=== PATIENT | female | born 1985 | race African-American/Black ===

== ENCOUNTER → 2020-09-05 14:03 | Outpatient (BNVA) | payer OTHER, SELFPAY | PROVIDERS: Visit Provider Physician Assistant ==

== ENCOUNTER → 2020-09-25 12:30 | Outpatient (BNVA) | payer OTHER, SELFPAY | PROVIDERS: PCP Internal Medicine; Visit Provider Surgery | DX: E66.01 Morbid (severe) obesity due to excess calories (principal); Z68.44 Body mass index [BMI] 60.0-69.9, adult | CPT/HCPCS: 99202 ==

== ENCOUNTER 2020-09-28 11:37 | Outpatient (REF) | payer OTHER, SELFPAY ==
--- NOTE | ~2020-09-28 | XR_ITS ---
EXAMINATION: XR CHEST CLINICAL INFORMATION: Shortness of breath COMPARISON: None TECHNIQUE: 2 views of the chest were obtained. FINDINGS: No significant abnormality is noted involving the heart, lungs, mediastinum, bony thorax or soft tissues. XR/XR chest 2V IMPRESSION: Unremarkable examination.
--- NOTE | 2020-09-28 11:47 | ECG_ITS ---
Test Reason : SOB Blood Pressure : / mmHG Vent. Rate : 093 BPM Atrial Rate : 093 BPM P-R Int : 110 ms QRS Dur : 082 ms QT Int : 358 ms P-R-T Axes : 025 047 006 degrees QTc Int : 445 ms Sinus rhythm with short OK Otherwise normal ECG No previous ECGs available Referred By: Tali Costello Electronically Signed By:ASHLEY MOJICA MD
[2020-09-28 12:31] LABS: MANUAL DIFF FLAG NO
[2020-09-28 12:42] LABS: Basophils Percent Auto 0.2 % (0-2); Eosinophils Absolute Auto 0.3 X10*3/uL (0.0-0.4); Eosinophils Percent Auto 2.8 % (0-4); Hematocrit 38.3 % (37-47); Hemoglobin 11.5 g/dl (12.0-16.0); Imm Gran Abs Auto 0.03 X10*3/uL (0.00-0.03); Imm Gran Pct Auto 0.3 % (0.0-0.4); Lymphocytes Absolute Auto 2.8 X10*3/uL (1.2-4.9); Lymphocytes Percent Auto 26.6 % (20-40); Mean Corpuscular Hemoglobin 22.8 pg (27.0-33.0); Mean Corpuscular Volume 75.8 fL (80-98); Mean Platelet Volume 10.8 fL (9.4-12.3); Monocytes Absolute Auto 0.8 X10*3/uL (0.1-1.2); Monocytes Percent Auto 7.1 % (2-11); Neutrophils Absolute Auto 6.7 X10*3/uL (2.0-8.3); Platelet Count 401 X10*3/uL (160-400); Red Blood Count 5.05 X10*6/uL (4.20-5.50); White Blood Count 10.6 X10*3/uL (4.8-10.8)
[2020-09-28 13:04] LABS: Estimated Average Glucose 134 mg/dL; Hemoglobin A1c % 6.3 %
[2020-09-28 13:09] LABS: Alanine Aminotransferase 36 U/L (0-31); Albumin Level 3.9 g/dL (3.5-5.0); Alkaline Phosphatase 69 U/L (39-117); Anion Gap 12 (12-20); Aspartate Amino Transferase 28 U/L (5-31); Bilirubin Total 0.6 mg/dL (0.0-1.0); Blood Urea Nitrogen 15 mg/dL (9-16); C Reactive Protein 2.56 mg/dL (< or = 0.50); Calcium 9.4 mg/dL (8.4-10.2); Carbon Dioxide 25 mmol/L (22-29); Chloride 105 mmol/L (96-108); Cholesterol 140 mg/dL; Estimated Glomerular Filt Rate > 60; Glucose Fasting 128 mg/dL (60-99); HDL Cholesterol 34 mg/dL; Iron 35 mcg/dL (30-160); LDL Cholesterol Calculated 84 mg/dl; Percent Iron Saturation 7 % (15-50); Potassium 4.3 mmol/L (3.3-5.1); Sodium 138 mmol/L (135-145); Total Iron Binding Capacity 497 mcg/dL (228-428); Total Protein 7.6 g/dL (6.5-8.0); Triglycerides 112 mg/dL; Unsaturated Iron Binding 462 ug/dL
[2020-09-28 13:27] LABS: Vitamin B12 318 pg/mL (200-900)
[2020-09-28 13:29] LABS: Vitamin D 25-OH Total 4.9 ng/mL (>30)
[2020-10-01 16:51] LABS: Zinc 65 mcg/dL (60-130)
[2020-10-02 10:27] LABS: Calcium (PTHI) 9.3 mg/dL (8.6-10.2); PTHI 48 pg/mL (14-64)
[2020-10-03 00:36] LABS: Vitamin A 36 mcg/dL (38-98)
[2020-10-03 15:56] LABS: Vitamin B1 6 nmol/L (8-30)
== END 2020-09-28 11:38 | disposition home or self-care (01) ==
LOC: HO.LAB 11:37
PROVIDERS: Visit Provider Surgery
DX: Z01.818 Encounter for other preprocedural examination (principal); K91.2 Postsurgical malabsorption, not elsewhere classified; R06.02 Shortness of breath; E55.9 Vitamin D deficiency, unspecified; Z90.3 Acquired absence of stomach [part of]
CPT/HCPCS: 36415; 71046; 80053; 80061; 82306; 82607; 83036; 83540; 83970; 84425; 84443; 84590; 84630; 85025; 86140; 93005

== ENCOUNTER 2020-10-11 14:34 | Outpatient (REF) | payer OTHER, SELFPAY ==
[2020-10-12 13:41] LABS: H Pylori Breath Test NOT DETECTED (NOT DETECTED)
== END 2020-10-11 14:35 | disposition home or self-care (01) ==
LOC: HO.LNP 14:34
PROVIDERS: Surgery; Visit Provider Physician Assistant
DX: Z01.818 Encounter for other preprocedural examination (principal)
CPT/HCPCS: 83013; 99211

== ENCOUNTER → 2020-10-17 14:02 | Outpatient (BNVA) | payer OTHER, SELFPAY | PROVIDERS: Visit Provider Physician Assistant | DX: E66.01 Morbid (severe) obesity due to excess calories (principal); Z68.44 Body mass index [BMI] 60.0-69.9, adult | CPT/HCPCS: 99212 ==

== ENCOUNTER → 2020-10-29 13:42 | Outpatient (BNVA) | payer OTHER, SELFPAY | PROVIDERS: Visit Provider Dietitian, Registered | DX: E66.9 Obesity, unspecified (principal); Z68.44 Body mass index [BMI] 60.0-69.9, adult | CPT/HCPCS: 97802 ==

== ENCOUNTER → 2020-11-26 08:16 | Outpatient (BNVA) | payer OTHER, SELFPAY | PROVIDERS: Visit Provider Dietitian, Registered | DX: E66.9 Obesity, unspecified (principal); Z68.44 Body mass index [BMI] 60.0-69.9, adult | CPT/HCPCS: 97803 ==

== ENCOUNTER → 2020-12-20 08:16 | Outpatient (BNVA) | payer OTHER, SELFPAY | PROVIDERS: Visit Provider Dietitian, Registered | DX: E66.01 Morbid (severe) obesity due to excess calories (principal) | CPT/HCPCS: 97803 ==

== ENCOUNTER 2021-10-13 13:58 | Emergency (ER) | payer OTHER, SELFPAY ==
--- NOTE | ~2021-10-13 | XR_ITS ---
EXAMINATION: XR CHEST CLINICAL INFORMATION: Cough, upper respiratory infection. COMPARISON: 09/28/2020 chest radiographs. TECHNIQUE: 2 views of the chest were obtained. FINDINGS: Subtle mild patchy opacities are seen bilaterally most pronounced in the left midlung in the perihilar region. There are no pleural effusions. The heart and mediastinal structures are unremarkable. XR/XR chest 2V IMPRESSION: Subtle mild bilateral patchy opacities with more focal left perihilar infiltrate suggesting an infectious/inflammatory process.
[2021-10-13 14:38] VITALS: BP 150/96; PULSE 91; RESP 20; TEMP 36.6; O2SAT 96; BMI 67.3
[2021-10-13 15:40] LABS: Influenza A PCR NEGATIVE (Negative); Influenza B PCR NEGATIVE (Negative); Resp Syncy Virus RNA Qual PCR NEGATIVE (Negative); SARS COV2 PCR INHOUSE NEGATIVE (Negative)
[2021-10-13] MEDS: predniSONE 20 MG TABLET 40 MG PO (17:57)
[2021-10-13] MEDS: Amoxicillin/Potassium Clav 875 MG TABLET PO (17:57)
[2021-10-13] MEDS: Benzonatate 100 MG CAPSULE 200 MG PO (17:57)
[2021-10-13 17:59] VITALS: PULSE 91; RESP 18; O2SAT 96
[2021-10-13] MEDS: Albuterol Sulfate 90 MCG 8 GM INHALER 4 PUFF INHALE (17:59)
--- NOTE | 2021-10-13 18:05 | ED.URI ---
HPI - URI/Sore Throat General Chief Complaint: Upper Respiratory Symptoms Stated Complaint: SOB/Headaches/Nose bleeds Time Seen by Provider: 10/13/21 17:27 Source: patient Mode of arrival: ambulatory Limitations: no limitations History of Present Illness HPI Narrative: Patient been complaining of headache body ache cough symptoms for last 4 days with epistaxis off and on. With other family member also sick including children. Patient denies any fever cough is with mucopurulent expectoration feel congested with body aches patient does have a history of asthma occasionally uses inhaler complaining of wheezing most in the nighttime epistaxis is mostly on the left nare self-limited Related Data Home Medications Medication Instructions Recorded Confirmed albuterol sulfate 90 mcg/actuation 2 puff INHALATION Q4-6H PRN 09/25/20 10/17/20 aerosol inhaler Previous Rx's Medication Instructions Recorded cholecalciferol (vitamin D3) 1,250 1,250 mcg PO QWEEK #4 cap 09/28/20 mcg (50,000 unit) capsule thiamine HCl (vitamin B1) 100 mg 100 mg PO DAILY #30 tab 10/09/20 tablet vitamin A palmitate 10,000 unit 20,000 unit PO DAILY 30 Days #60 10/09/20 tablet tab albuterol sulfate 2.5 mg (3 mL) INHALATION Q4-6H PRN 10/13/21 #90 ml albuterol sulfate 90 mcg/actuation 2 puff INHALATION Q4-6H PRN #8.5 g 10/13/21 aerosol inhaler (ProAir HFA) amoxicillin 875 mg-potassium 1 tab PO BID #20 tab 10/13/21 clavulanate 125 mg tablet codeine 10 mg-guaifenesin 100 mg/5 10 ml PO Q6H PRN #237 ml 10/13/21 mL oral liquid prednisone 20 mg tablet 40 mg PO DAILY #10 tab 10/13/21 Allergies Allergy/AdvReac Type Severity Reaction Status Date / Time spinach Allergy Unknown UNKNOWN Verified 10/13/21 14:38 - spinach - in dish with Allergy Unknown itching Uncoded 09/25/20 13:22 unkow DUST Allergy Unknown ITCHY EYES Uncoded 09/25/20 13:22 dust Allergy Unknown Anaphylaxis Uncoded 09/25/20 13:22 Hummus Allergy Unknown Anaphylaxis Uncoded 09/25/20 13:22 hummus Allergy Unknown rash, Uncoded 09/25/20 13:22 swelling in the face Pt states no medication Allergy Unknown Anaphylaxis Uncoded 09/25/20 13:22 allerg SHELLFISH Allergy Unknown ANAPHYLAXIS Uncoded 09/25/20 13:22 SHRIMP Allergy Unknown Anaphylaxis Uncoded 09/25/20 13:22 shrimp Allergy Unknown throat Uncoded 09/25/20 13:22 gets itchy SPINACH Allergy Unknown Anaphylaxis Uncoded 09/25/20 13:22 Review of Systems Review of Systems: Yes all other systems are reviewed and are negative [facility] Past Medical History Medical History Asthma Morbid obesity due to excess calories Surgical History History of tubal ligation Hx of section Family History Family History Mother Arthritis Fibromyalgia Father Diabetes Brother No problems noted. Brother No problems noted. Brother No problems noted. Sister No problems noted. Sister No problems noted. Son Autism Son Autism Son No problems noted. Son No problems noted. Social History Social History Alcohol intake: current Alcohol intake frequency: holidays/special occasions only Advance Directives: No Advance Directives Information Provided: No Physical Exam Vital Signs: Vital Signs: Last Vital Signs Temp 97.9 F 10/13/21 14:38 Pulse 91 10/13/21 17:59 Resp 18 10/13/21 17:59 BP 150/96 H 10/13/21 14:38 Pulse Ox 96 10/13/21 14:38 BMI result Body Mass Index 67.3 Appearance: Alert. Oriented X3. No acute distress. Obese patient ENT: Pharynx normal. Oral Mucosa moist no active nose bleed Neck: Normal inspection. Neck supple. CVS: Normal heart rate and rhythm. Pulses normal. Respiratory: No respiratory distress. Equal air entry bilateral, bilateral wheezing with occasional rales Abdomen: Soft and nontender. Bowel sounds are present, no mass palpable, no CVA tenderness Skin: Skin warm and dry. Normal skin color. Normal skin turgor. Extremities: No lower extremity edema. No calf tenderness Neuro: Oriented X 3. No motor deficit. MDM - URI/Sore Throat MDM Narrative Medical decision making narrative: Patient's chest x-ray showed few infiltrate will discharge patient home on prednisone Augmentin Differential Diagnosis Differential diagnosis: Likely upper respiratory infection Lab Data Attestation: I reviewed the patient's lab results. Labs: Lab Results 10/13/21 Range/Units 14:43 Influenza Type A (PCR) NEGATIVE (Negative) Influenza Type B (PCR) NEGATIVE (Negative) RSV RNA Qual (PCR) NEGATIVE (Negative) SARS-CoV-2 RNA (RT-PCR) NEGATIVE (Negative) Discharge Plan Discharge Clinical Impression: Bronchitis, Pneumonia Patient Disposition: Home, Self-Care Instructions: Acute Bronchitis (ED), Community Acquired Pneumonia (ED) Additional Instructions: Take antibiotic as prescribed Albuterol inhaler 2 puffs every 4-6 hours as needed Prednisone as prescribed Cough drops as prescribed. Follow-up with PCP if not better Prescriptions: New codeine-guaifenesin 10-100 mg/5 mL liquid 10 ml PO Q6H PRN (Reason: cough) Qty: 237 0RF amoxicillin-pot clavulanate 875-125 mg tablet 1 tab PO BID Qty: 20 0RF albuterol sulfate 2.5 mg /3 mL (0.083 %) solution for nebulization 2.5 mg inhalation Q4-6H PRN (Reason: shortness of breath or wheezing) Qty: 90 0RF prednisone 20 mg tablet 40 mg PO DAILY Qty: 10 0RF albuterol sulfate [ProAir HFA] 90 mcg/actuation HFA aerosol inhaler 2 puff inhalation Q4-6H PRN (Reason: Wheezing) Qty: 8.5 0RF No Action cholecalciferol (vitamin D3) 1,250 mcg (50,000 unit) capsule 1,250 mcg PO QWEEK Qty: 4 2RF vitamin A palmitate 10,000 unit tablet 20,000 unit PO DAILY 30 Days Qty: 60 0RF thiamine HCl (vitamin B1) 100 mg tablet 100 mg PO DAILY Qty: 30 0RF albuterol sulfate 90 mcg/actuation HFA aerosol inhaler 2 puff inhalation Q4-6H PRN0RF Interventions: ED Discharge Assessment Last Done: 10/13/21 19:07 Discharge Date/Time: 10/13/21 19:09
== END 2021-10-13 19:09 | disposition home or self-care (01) ==
PROVIDERS: Emergency Provider Internal Medicine
DX: J40 Bronchitis, not specified as acute or chronic (principal); J18.9 Pneumonia, unspecified organism; Z20.822 Contact with and (suspected) exposure to COVID-19
CPT/HCPCS: 0241U; 71046; 94640; 94664; 99283; 99284

== ENCOUNTER 2022-07-25 19:48 | Emergency (ER) | payer OTHER, SELFPAY ==
--- NOTE | ~2022-07-25 | CT_ITS ---
EXAMINATION: CT FACIAL BONES WITHOUT CONTRAST CLINICAL INFORMATION: Left-sided swelling. Cellulitis. COMPARISON: None available. TECHNIQUE: Multidetector volumetric imaging of the facial bones performed without IV contrast. Coronal and sagittal reformatted images are obtained and reviewed. This CT examination was performed using dose optimization techniques as appropriate, variously including the following: *Automated exposure control *Adjustment of mA and/or kV according to patient size (this includes techniques or standardized protocols for targeted exams where dose is matched to indication/reason for exam; i.e. extremities or head) *Use of iterative reconstruction technique DLP: 833 mGy-cm FINDINGS: There is soft tissue edema overlying the region of the left parotid gland. Mild thickening of the underlying platysma. No fluid collection. The parotid glands appear symmetric. There are multiple lymph nodes present within both parotid glands. The submandibular glands are symmetric. Mildly prominent cervical lymph nodes are noted. For instance there is a right jugular chain node measuring 2 cm in long axis, series 4 image 25. Left-sided node measuring 2 cm on series 4 image 28. No maxillofacial fracture. The temporomandibular joints are well aligned. There is near complete opacification of the left maxillary sinus. The remaining paranasal sinuses are well aerated. The drainage pathways are patent. The mastoid air cells are well aerated. The visualized intracranial structures show no acute abnormality. Partially visualized probable sebaceous cyst along the right calvarium. The orbits are symmetric. The extraocular muscles are intact. The globes are intact. Slight rightward deviation of the nasal septum. CT/CT facial bones wo IV con IMPRESSION: 1. Soft tissue edema overlying the left parotid gland. No fluid collection. 2. Prominent cervical lymph nodes are likely reactive. 3. Near complete opacification of the left maxillary sinus.
[2022-07-25 19:53] VITALS: BP 162/104; PULSE 112; RESP 18; TEMP 36.8; O2SAT 96; BMI 74.2
--- NOTE | 2022-07-25 19:55 | ED.GENADULT ---
HPI - General Adult General Chief complaint: General Medical <VICKIE Osei - Last Filed: 07/25/22 19:55> Stated complaint: facial swelling <VICKIE Osei - Last Filed: 07/25/22 19:55> Time Seen by Provider: 07/25/22 21:13 <VICKIE Osei - Last Filed: 07/25/22 19:55> Source: patient <Pipo Stubbs MD - Last Filed: 07/26/22 00:44> Mode of arrival: ambulatory <Pipo Stubbs MD - Last Filed: 07/26/22 00:44> Limitations: no limitations <Pipo Stubbs MD - Last Filed: 07/26/22 00:44> History of Present Illness HPI narrative: Patient otherwise healthy obese with history of recurrent cellulitis on her extremities notice swelling of the left cheek 3 days ago gradually getting worse spreading to the whole face no fever no chills no significant dental pain no earache no nasal discharge <Pipo Stubbs MD - Last Filed: 07/26/22 00:44> Related Data Home medications: Home Medications Medication Instructions Recorded Confirmed albuterol sulfate 90 mcg/actuation 2 puff inhalation Q4-6H PRN 09/25/20 10/17/20 aerosol inhaler Previous Rx's Medication Instructions Recorded cholecalciferol (vitamin D3) 1,250 1,250 mcg PO QWEEK #4 caps 09/28/20 mcg (50,000 unit) capsule thiamine HCl (vitamin B1) 100 mg 100 mg PO DAILY #30 tabs 10/09/20 tablet vitamin A palmitate 3,000 mcg 20,000 unit PO DAILY 30 days #60 10/09/20 (10,000 unit) tablet tabs albuterol sulfate 2.5 mg/3 mL 2.5 mg (3 mL) inhalation Q4-6H PRN 10/13/21 (0.083 %) solution for nebulization shortness of breath or wheezing #90 mL albuterol sulfate 90 mcg/actuation 2 puff inhalation Q4-6H PRN 10/13/21 aerosol inhaler (ProAir HFA) Wheezing #8.5 grams amoxicillin 875 mg-potassium 1 tab PO BID #20 tabs 10/13/21 clavulanate 125 mg tablet codeine 10 mg-guaifenesin 100 mg/5 10 ml PO Q6H PRN cough #237 mL 10/13/21 mL oral liquid prednisone 20 mg tablet 40 mg PO DAILY #10 tabs 10/13/21 amoxicillin 875 mg-potassium 1 tab PO BID #20 tabs 07/26/22 clavulanate 125 mg tablet doxycycline hyclate 100 mg tablet 100 mg PO BID #20 tabs 07/26/22 <VICKIE Osei - Last Filed: 07/25/22 19:55> Allergies/adverse reactions: Allergies Allergy/AdvReac Type Severity Reaction Status Date / Time spinach Allergy Unknown UNKNOWN Verified 10/13/21 14:38 - spinach - in dish with Allergy Unknown itching Uncoded 09/25/20 13:22 unkow DUST Allergy Unknown ITCHY EYES Uncoded 09/25/20 13:22 dust Allergy Unknown Anaphylaxis Uncoded 09/25/20 13:22 Hummus Allergy Unknown Anaphylaxis Uncoded 09/25/20 13:22 hummus Allergy Unknown rash, Uncoded 09/25/20 13:22 swelling in the face Pt states no medication Allergy Unknown Anaphylaxis Uncoded 09/25/20 13:22 allerg SHELLFISH Allergy Unknown ANAPHYLAXIS Uncoded 09/25/20 13:22 SHRIMP Allergy Unknown Anaphylaxis Uncoded 09/25/20 13:22 shrimp Allergy Unknown throat Uncoded 09/25/20 13:22 gets itchy SPINACH Allergy Unknown Anaphylaxis Uncoded 09/25/20 13:22 <VICKIE Osei - Last Filed: 07/25/22 19:55> Review of Systems Review of Systems: Constitutional : No Weight loss, No Fever, No Chills ENT/Mouth : No sore throat, No Rhinorrhea Eyes: No Eye Pain, No Swelling Cardiovascular : No Chest Pain, no palpitations Respiratory : No Cough, No Sputum, no shortness of breath Gastrointestinal : no Nausea, No Vomiting, No Diarrhea, No abdominal Pain, no black stools Genitourinary : No Dysuria, No Urinary Frequency Musculoskeletal : No joint pain, No Myalgias, No Joint Swelling Skin : No Skin Lesions, + rash Neuro : No Weakness, No Numbness, No Dizziness, No Headache Psych : No Anxiety/Panic, No Depression Heme/Lymph: No Bruising, No Lymphadenopathy Endocrine : No Polyuria, No Polydipsia All other systems reviewed and are negative <Pipo Stubbs MD - Last Filed: 07/26/22 00:44> Yes all other systems are reviewed and are negative <Pipo Stubbs MD - Last Filed: 07/26/22 00:44> [facility] Past Medical History Medical History: Medical History Asthma Morbid obesity due to excess calories <VICKIE Osei - Last Filed: 07/25/22 19:55> Surgical History: Surgical History History of tubal ligation Hx of section <VICKIE Osei - Last Filed: 07/25/22 19:55> Family History Family History: Family History Mother Arthritis Fibromyalgia Father Diabetes Brother No problems noted. Brother No problems noted. Brother No problems noted. Sister No problems noted. Sister No problems noted. Son Autism Son Autism Son No problems noted. Son No problems noted. <VICKIE Osei - Last Filed: 07/25/22 19:55> Social History Social History: Social History Alcohol intake: current Alcohol intake frequency: holidays/special occasions only Advance Directives: No Advance Directives Information Provided: No <VICKIE Osei - Last Filed: 07/25/22 19:55> Physical Exam ED Vital Signs: Vital Signs - 24 hr 07/25/22 19:53 07/25/22 23:14 Temperature 98.3 F 98.2 F Pulse Rate 112 H 100 Respiratory Rate 18 20 Blood Pressure 162/104 H 155/79 H Pulse Oximetry 96 95 Oxygen Delivery Method Room Air Room Air BMI result Body Mass Index 74.2 <VICKIE Osei - Last Filed: 07/25/22 19:55> Vital Signs - 24 hr 07/25/22 19:53 07/25/22 23:14 Temperature 98.3 F 98.2 F Pulse Rate 112 H 100 Respiratory Rate 18 20 Blood Pressure 162/104 H 155/79 H Pulse Oximetry 96 95 Oxygen Delivery Method Room Air Room Air BMI result Body Mass Index 74.2 <Pipo Stubbs MD - Last Filed: 07/26/22 00:44> Appearance: Alert. Oriented X3. No acute distress. HEENT: Pharynx normal. Oral Mucosa moist diffuse skin thickening and redness starting on the left side of the face all the way to the right side involving the left ear and spreading to the scalp clinically cellulitis no open wound seen no sinus tenderness no nasal discharge Neck: Normal inspection. Neck supple. CVS: Normal heart rate and rhythm. Pulses normal. Respiratory: No respiratory distress. Equal air entry bilateral Abdomen: Soft and nontender. Bowel sounds are present, Skin: Skin warm and dry. Erythema of the face, Normal skin turgor. Extremities: No lower extremity edema. No calf tenderness Neuro: Oriented X 3. No motor deficit. <Pipo Stubbs MD - Last Filed: 07/26/22 00:44> Course Course Course Narrative: RME performed by Laya Perez PA-C. Patient is a 37 year old female presenting to the emergency department with facial swelling and a headache. Labs ordered. Patient placed back in the waiting room pending results and room availability. <VICKIE Osei - Last Filed: 07/25/22 19:55> Medications Administered Discontinued Medications Generic Name Dose Route Start Last Admin Trade Name Freq PRN Reason Stop Dose Admin Vancomycin HCl 2,000 mg in 520 mls @ 260 mls/hr 07/25/22 21:24 07/26/22 00:19 Vancomycin/Ns IV 07/25/22 23:23 Infused ONCE ONE Infusion Ketorolac Tromethamine 30 mg 07/25/22 21:24 07/25/22 22:13 Ketorolac Tromethamine 30 Mg/Ml Vial IVPUSH 07/25/22 21:25 30 mg ONCE ONE Administration <VICKIE Osei - Last Filed: 07/25/22 19:55> Medications Administered Discontinued Medications Generic Name Dose Route Start Last Admin Trade Name Freq PRN Reason Stop Dose Admin Vancomycin HCl 2,000 mg in 520 mls @ 260 mls/hr 07/25/22 21:24 07/26/22 00:19 Vancomycin/Ns IV 07/25/22 23:23 Infused ONCE ONE Infusion Ketorolac Tromethamine 30 mg 07/25/22 21:24 07/25/22 22:13 Ketorolac Tromethamine 30 Mg/Ml Vial IVPUSH 07/25/22 21:25 30 mg ONCE ONE Administration <Pipo Stubbs MD - Last Filed: 07/26/22 00:44> Medical Decision Making Medical Decision Making [facility] Narrative: Patient with facial cellulitis with history of cellulitis in other part of the body CT scan negative for any deep abscess discharge patient home on doxycycline Augmentin patient received a dose of vancomycin in the ER <Pipo Stubbs MD - Last Filed: 07/26/22 00:44> Lab Data [facility] Lab Attestation statement: I reviewed the patient's lab results. <Pipo Stubbs MD - Last Filed: 07/26/22 00:44> Result Diagrams: 07/25/22 20:35 07/25/22 20:35 <VICKIE Osei - Last Filed: 07/25/22 19:55> Labs: Lab Results 07/25/22 07/25/22 07/25/22 Range/Units 20:35 20:35 20:35 WBC 13.5 H (4.8-10.8) X10*3/uL RBC 5.24 (4.20-5.50) X10*6/uL Hgb 13.0 (12.0-16.0) g/dl Hct 41.1 (37.0-47.0) % MCV 78.4 L (80.0-98.0) fL MCH 24.8 L (27.0-33.0) pg MCHC 31.6 (31.0-35.0) g/dl RDW 14.2 (11.0-16.0) % Plt Count 279 (160-400) X10*3/uL MPV 11.3 (9.4-12.3) fL Immature Gran % (Auto) 0.4 (0.0-0.4) % Neut % (Auto) 73.1 H (45-73) % Lymph % (Auto) 16.2 L (20-40) % [place] % (Auto) 9.3 (2-11) % Eos % (Auto) 0.8 (0-4) % Baso % (Auto) 0.2 (0-2) % Lymph # (Auto) 2.2 (1.2-4.9) X10*3/uL [place] # (Auto) 1.3 H (0.1-1.2) X10*3/uL Eos # (Auto) 0.1 (0.0-0.4) X10*3/uL Baso # (Auto) 0.0 (0.0-0.2) X10*3/uL Abs Immat Gran (auto) 0.06 H (0.00-0.03) X10*3/uL Absolute Neuts (auto) 9.9 H (2.0-8.3) x10*3/uL Absolute Nucleated RBC 0.000 (0.0-0.012) X10*3/uL Nucleated RBC % (auto) 0.0 (0.0-0.2) /100WBC Sodium 135 (135-145) mmol/L Potassium 4.7 (3.3-5.1) mmol/L Chloride 96 (96-108) mmol/L Carbon Dioxide 29 (22-29) mmol/L Anion Gap 15 (12-20) BUN 13 (9-16) mg/dL Creatinine 0.99 (0.5-1.4) mg/dL Estim Creat Clear Calc 146.2 Estimated GFR > 60 Random Glucose 227 H (60-115) mg/dL Lactic Acid (0.5-2.0) mmol/L Calcium 9.2 (8.4-10.2) mg/dL Magnesium 2.2 (1.6-2.6) mg/dL Total Bilirubin 0.8 (0.0-1.0) mg/dL AST 42 H (5-31) U/L ALT 45 H (0-31) U/L Alkaline Phosphatase 81 (39-117) U/L Total Protein 8.0 (6.5-8.0) g/dL Albumin 3.8 (3.5-5.0) g/dL COVID-19 (HAY) Negative (Negative) COVID-19 Clin Com See Note 07/25/22 Range/Units 21:56 WBC (4.8-10.8) X10*3/uL RBC (4.20-5.50) X10*6/uL Hgb (12.0-16.0) g/dl Hct (37.0-47.0) % MCV (80.0-98.0) fL MCH (27.0-33.0) pg MCHC (31.0-35.0) g/dl RDW (11.0-16.0) % Plt Count (160-400) X10*3/uL MPV (9.4-12.3) fL Immature Gran % (Auto) (0.0-0.4) % Neut % (Auto) (45-73) % Lymph % (Auto) (20-40) % [place] % (Auto) (2-11) % Eos % (Auto) (0-4) % Baso % (Auto) (0-2) % Lymph # (Auto) (1.2-4.9) X10*3/uL [place] # (Auto) (0.1-1.2) X10*3/uL Eos # (Auto) (0.0-0.4) X10*3/uL Baso # (Auto) (0.0-0.2) X10*3/uL Abs Immat Gran (auto) (0.00-0.03) X10*3/uL Absolute Neuts (auto) (2.0-8.3) x10*3/uL Absolute Nucleated RBC (0.0-0.012) X10*3/uL Nucleated RBC % (auto) (0.0-0.2) /100WBC Sodium (135-145) mmol/L Potassium (3.3-5.1) mmol/L Chloride (96-108) mmol/L Carbon Dioxide (22-29) mmol/L Anion Gap (12-20) BUN (9-16) mg/dL Creatinine (0.5-1.4) mg/dL Estim Creat Clear Calc Estimated GFR Random Glucose (60-115) mg/dL Lactic Acid 1.8 (0.5-2.0) mmol/L Calcium (8.4-10.2) mg/dL Magnesium (1.6-2.6) mg/dL Total Bilirubin (0.0-1.0) mg/dL AST (5-31) U/L ALT (0-31) U/L Alkaline Phosphatase (39-117) U/L Total Protein (6.5-8.0) g/dL Albumin (3.5-5.0) g/dL COVID-19 ([facility]AY) (Negative) COVID-19 Clin Com <VICKIE Osei - Last Filed: 07/25/22 19:55> Lab Results 07/25/22 07/25/22 07/25/22 Range/Units 20:35 20:35 20:35 WBC 13.5 H (4.8-10.8) X10*3/uL RBC 5.24 (4.20-5.50) X10*6/uL Hgb 13.0 (12.0-16.0) g/dl Hct 41.1 (37.0-47.0) % MCV 78.4 L (80.0-98.0) fL MCH 24.8 L (27.0-33.0) pg MCHC 31.6 (31.0-35.0) g/dl RDW 14.2 (11.0-16.0) % Plt Count 279 (160-400) X10*3/uL MPV 11.3 (9.4-12.3) fL Immature Gran % (Auto) 0.4 (0.0-0.4) % Neut % (Auto) 73.1 H (45-73) % Lymph % (Auto) 16.2 L (20-40) % [place] % (Auto) 9.3 (2-11) % Eos % (Auto) 0.8 (0-4) % Baso % (Auto) 0.2 (0-2) % Lymph # (Auto) 2.2 (1.2-4.9) X10*3/uL [place] # (Auto) 1.3 H (0.1-1.2) X10*3/uL Eos # (Auto) 0.1 (0.0-0.4) X10*3/uL Baso # (Auto) 0.0 (0.0-0.2) X10*3/uL Abs Immat Gran (auto) 0.06 H (0.00-0.03) X10*3/uL Absolute Neuts (auto) 9.9 H (2.0-8.3) x10*3/uL Absolute Nucleated RBC 0.000 (0.0-0.012) X10*3/uL Nucleated RBC % (auto) 0.0 (0.0-0.2) /100WBC Sodium 135 (135-145) mmol/L Potassium 4.7 (3.3-5.1) mmol/L Chloride 96 (96-108) mmol/L Carbon Dioxide 29 (22-29) mmol/L Anion Gap 15 (12-20) BUN 13 (9-16) mg/dL Creatinine 0.99 (0.5-1.4) mg/dL Estim Creat Clear Calc 146.2 Estimated GFR > 60 Random Glucose 227 H (60-115) mg/dL Lactic Acid (0.5-2.0) mmol/L Calcium 9.2 (8.4-10.2) mg/dL Magnesium 2.2 (1.6-2.6) mg/dL Total Bilirubin 0.8 (0.0-1.0) mg/dL AST 42 H (5-31) U/L ALT 45 H (0-31) U/L Alkaline Phosphatase 81 (39-117) U/L Total Protein 8.0 (6.5-8.0) g/dL Albumin 3.8 (3.5-5.0) g/dL COVID-19 ([facility]AY) Negative (Negative) COVID-19 Clin Com See Note 07/25/22 Range/Units 21:56 WBC (4.8-10.8) X10*3/uL RBC (4.20-5.50) X10*6/uL Hgb (12.0-16.0) g/dl Hct (37.0-47.0) % MCV (80.0-98.0) fL MCH (27.0-33.0) pg MCHC (31.0-35.0) g/dl RDW (11.0-16.0) % Plt Count (160-400) X10*3/uL MPV (9.4-12.3) fL Immature Gran % (Auto) (0.0-0.4) % Neut % (Auto) (45-73) % Lymph % (Auto) (20-40) % [place] % (Auto) (2-11) % Eos % (Auto) (0-4) % Baso % (Auto) (0-2) % Lymph # (Auto) (1.2-4.9) X10*3/uL [place] # (Auto) (0.1-1.2) X10*3/uL Eos # (Auto) (0.0-0.4) X10*3/uL Baso # (Auto) (0.0-0.2) X10*3/uL Abs Immat Gran (auto) (0.00-0.03) X10*3/uL Absolute Neuts (auto) (2.0-8.3) x10*3/uL Absolute Nucleated RBC (0.0-0.012) X10*3/uL Nucleated RBC % (auto) (0.0-0.2) /100WBC Sodium (135-145) mmol/L Potassium (3.3-5.1) mmol/L Chloride (96-108) mmol/L Carbon Dioxide (22-29) mmol/L Anion Gap (12-20) BUN (9-16) mg/dL Creatinine (0.5-1.4) mg/dL Estim Creat Clear Calc Estimated GFR Random Glucose (60-115) mg/dL Lactic Acid 1.8 (0.5-2.0) mmol/L Calcium (8.4-10.2) mg/dL Magnesium (1.6-2.6) mg/dL Total Bilirubin (0.0-1.0) mg/dL AST (5-31) U/L ALT (0-31) U/L Alkaline Phosphatase (39-117) U/L Total Protein (6.5-8.0) g/dL Albumin (3.5-5.0) g/dL COVID-19 ([facility]AY) (Negative) COVID-19 Clin Com <Pipo Stubbs MD - Last Filed: 07/26/22 00:44> Discharge Plan Discharge Clinical Impression: Cellulitis of face <VICKIE Osei - Last Filed: 07/25/22 19:55> Patient Disposition: Home, Self-Care <VICKIE Osei - Last Filed: 07/25/22 19:55> Instructions: Cellulitis (ED) <VICKIE Osei - Last Filed: 07/25/22 19:55> Additional Instructions: Take antibiotic as prescribed Follow with PCP if not better or report to the ER if high fever <VICKIE Osei - Last Filed: 07/25/22 19:55> Prescriptions: New doxycycline hyclate 100 mg tablet 100 mg PO BID Qty: 20 0RF amoxicillin-pot clavulanate 875-125 mg tablet 1 tab PO BID Qty: 20 0RF No Action cholecalciferol (vitamin D3) 1,250 mcg (50,000 unit) capsule 1,250 mcg PO QWEEK Qty: 4 2RF vitamin A palmitate 10,000 unit tablet 20,000 unit PO DAILY 30 Days Qty: 60 0RF thiamine HCl (vitamin B1) 100 mg tablet 100 mg PO DAILY Qty: 30 0RF codeine-guaifenesin 10-100 mg/5 mL liquid 10 ml PO Q6H PRN (Reason: cough) Qty: 237 0RF amoxicillin-pot clavulanate 875-125 mg tablet 1 tab PO BID Qty: 20 0RF albuterol sulfate 2.5 mg /3 mL (0.083 %) solution for nebulization 2.5 mg inhalation Q4-6H PRN (Reason: shortness of breath or wheezing) Qty: 90 0RF prednisone 20 mg tablet 40 mg PO DAILY Qty: 10 0RF albuterol sulfate [ProAir HFA] 90 mcg/actuation HFA aerosol inhaler 2 puff inhalation Q4-6H PRN (Reason: Wheezing) Qty: 8.5 0RF albuterol sulfate 90 mcg/actuation HFA aerosol inhaler 2 puff inhalation Q4-6H PRN <VICKIE Osei - Last Filed: 07/25/22 19:55>
[2022-07-25 20:40] LABS: Basophils Percent Auto 0.2 % (0-2); Eosinophils Absolute Auto 0.1 X10*3/uL (0.0-0.4); Eosinophils Percent Auto 0.8 % (0-4); Hematocrit 41.1 % (37.0-47.0); Imm Gran Abs Auto 0.06 X10*3/uL (0.00-0.03); Imm Gran Pct Auto 0.4 % (0.0-0.4); Lymphocytes Absolute Auto 2.2 X10*3/uL (1.2-4.9); Lymphocytes Percent Auto 16.2 % (20-40); MANUAL DIFF FLAG NO; Mean Corpuscular HGB Conc 31.6 g/dl (31.0-35.0); Mean Corpuscular Hemoglobin 24.8 pg (27.0-33.0); Mean Corpuscular Volume 78.4 fL (80.0-98.0); Mean Platelet Volume 11.3 fL (9.4-12.3); Monocytes Absolute Auto 1.3 X10*3/uL (0.1-1.2); Monocytes Percent Auto 9.3 % (2-11); Neutrophils Absolute Auto 9.9 x10*3/uL (2.0-8.3); Neutrophils Percent Auto 73.1 % (45-73); Platelet Count 279 X10*3/uL (160-400); Red Blood Count 5.24 X10*6/uL (4.20-5.50); Red Cell Distribution Width 14.2 % (11.0-16.0); White Blood Count 13.5 X10*3/uL (4.8-10.8)
[2022-07-25 20:55] LABS: Alanine Aminotransferase 45 U/L (0-31); Albumin Level 3.8 g/dL (3.5-5.0); Alkaline Phosphatase 81 U/L (39-117); Anion Gap 15 (12-20); Aspartate Amino Transferase 42 U/L (5-31); Bilirubin Total 0.8 mg/dL (0.0-1.0); Blood Urea Nitrogen 13 mg/dL (9-16); Calcium 9.2 mg/dL (8.4-10.2); Carbon Dioxide 29 mmol/L (22-29); Chloride 96 mmol/L (96-108); Creatinine Clr Calc Pharmacy 146.2; Estimated Glomerular Filt Rate > 60; Glucose Random 227 mg/dL (60-115); Magnesium 2.2 mg/dL (1.6-2.6); Potassium 4.7 mmol/L (3.3-5.1); Sodium 135 mmol/L (135-145)
[2022-07-25 21:05] LABS: IDNOW Serial# BCCEAD1C
[2022-07-25 21:06] LABS: COVID-19 Test Negative (Negative)
[2022-07-25] MEDS: Ketorolac Tromethamine 30 MG/ML VIAL IVPUSH (22:13)
[2022-07-25 22:23] LABS: Lactic Acid 1.8 mmol/L (0.5-2.0)
[2022-07-25 23:14] VITALS: BP 155/79; PULSE 100; RESP 20; TEMP 36.8; O2SAT 95
--- NOTE | 2022-07-26 01:25 | PC.NURSE ---
pt a&o, no sob or chest pain, pt discharge home,Reviewed discharge instructions and pt verbalized understanding. Notified ELGIN Jackson
== END 2022-07-26 01:26 | disposition home or self-care (01) ==
PROVIDERS: Physician Assistant Medical; Emergency Provider Internal Medicine
DX: L03.211 Cellulitis of face (principal); R51.9 Headache, unspecified; Z20.822 Contact with and (suspected) exposure to COVID-19; Z20.828 Contact with and (suspected) exposure to other viral communicable diseases; Z79.899 Other long term (current) drug therapy
CPT/HCPCS: 36415; 70486; 80053; 83605; 83735; 85025; 87040; 87635; 96365; 96366; 96375; 99284; J1885; J3370

== ENCOUNTER 2023-12-02 14:01 | Outpatient (AMB) | payer OTHER, SELFPAY ==
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
[2023-12-02 14:11] VITALS: BMI 60.2
== END 2023-12-02 14:18 | disposition home or self-care (01) ==
PROVIDERS: Visit Provider Surgery
DX: K43.2 Incisional hernia without obstruction or gangrene (principal)
CPT/HCPCS: 99203

== ENCOUNTER → 2023-12-02 14:01 | Outpatient (BNVA) | payer OTHER, SELFPAY | PROVIDERS: Visit Provider Surgery | DX: K43.2 Incisional hernia without obstruction or gangrene (principal) | CPT/HCPCS: 99202 ==